=== PATIENT | male | born 1970 | race African-American/Black ===

== ENCOUNTER 2022-06-24 14:40 | Emergency (ER) | payer OTHER ==
[~2022-06-24] VITALS: Ht 180.3 cm; Wt 80.9 kg
[2022-06-24] MEDS ORDERED: ASPIRIN 325MG EC TABLET PO ONE (15:00)
[2022-06-24 15:51] LABS: BASOPHILS % 0.5 % (0.0-2.0); HEMATOCRIT. 42.3 % (42.0-52.0); HEMOGLOBIN. 13.4 g/dL (14.0-18.0); LYMPHOCYTES % 20.2 % (20.0-50.0); MEAN CORPUSCULAR HEMOGLOBIN 21.7 pg (28.0-32.0); MEAN CORPUSCULAR VOLUME 68.4 fL (80.0-94.0); MONOCYTES % 9.8 % (2.0-8.0); NEUTROPHILS % 67.5 % (40.0-76.0); PLATELET 234 x1000/uL (130-400); RED BLOOD CELL COUNT 6.19 mill/uL (4.7-6.1); RED CELL DISTRIBUTION WIDTH 15.6 % (11.6-14.6)
[2022-06-24 16:12] LABS: CHLORIDE 106 mEq/L (98-107)
[2022-06-24 17:59] LABS: CLARITY URINE CLOUDY (CLEAR); COLOR URINE YELLOW (YELLOW); KETONES URINE NEGATIVE (NEGATIVE); LEUKOCYTE ESTERASE URINE NEGATIVE (NEGATIVE); NITRITE URINE NEGATIVE (NEGATIVE); OCCULT BLOOD URINE NEGATIVE (NEGATIVE); PH URINE 7.5 (4.5-8.0); PROTEIN URINE NEGATIVE (NEGATIVE); SPECIFIC GRAVITY URINE 1.009 (1.005-1.030); UROBILINOGEN URINE 0.2 E.U./dL (0.2-1.0)
[2022-06-24 20:12] LABS: PLATELET ESTIMATE NORMAL
[2022-06-24 21:00] VITALS: BP 136/82
== END 2022-06-24 21:15 | disposition home or self-care (01) ==
LOC: ER 14:40
DX: R07.89 Other chest pain (principal); M54.2 Cervicalgia; M25.512 Pain in left shoulder; J45.909 Unspecified asthma, uncomplicated
CPT/HCPCS: 36415; 71045; 80053; 81003; 83690; 83880; 84484; 85025; 93005; 99285; Z7610

== ENCOUNTER 2023-05-03 02:12 | Emergency (ER) | payer MEDICAID, OTHER ==
[~2023-05-03] VITALS: Ht 175.3 cm; Wt 77.0 kg
[2023-05-03 02:21] VITALS: O2SAT 98
[2023-05-03] MEDS: ONDANSETRON HCL 4MG/2ML INJ IV STA (02:56)
[2023-05-03] MEDS: MORPHINE SULFATE 4 MG/ML CPJ (NOT FOR IM USE) IV STA (02:56)
[2023-05-03] MEDS: SODIUM CHLORIDE 0.9% 1,000 ML IV ONE (03:00)
[2023-05-03 03:32] LABS: HEMATOCRIT. 31.1 % (42.0-52.0); HEMOGLOBIN. 9.9 g/dL (14.0-18.0); MEAN CORPUSCULAR HEMOGLOBIN 21.5 pg (28.0-32.0); MEAN CORPUSCULAR VOLUME 67.4 fL (80.0-94.0); MEAN PLATELET VOLUME 8.6 fl (7.4-10.4); PLATELET 137 x1000/uL (130-400); RED BLOOD CELL COUNT 4.62 mill/uL (4.7-6.1); RED CELL DISTRIBUTION WIDTH 19.3 % (11.6-14.6); WHITE BLOOD COUNT 10.2 x1000/uL (4.5-11.0)
[2023-05-03 03:43] LABS: DIFFERENTIAL COMMENT 1; INR 1.2; PROTHROMBIN TIME 13.6 sec (9.6-11.0)
[2023-05-03 03:57] LABS: LACTIC ACID 2.3 mmol/L (0.4-2.0)
[2023-05-03 04:07] VITALS: BP 104/70; PULSE 74; RESP 13; TEMP 98.3
[2023-05-03 04:34] LABS: ALANINE AMINOTRANSFERASE 110 IU/L (10-49); ALBUMIN 4.3 g/dL (3.2-4.8); ASPARTATE AMINOTRANSFERASE 96 IU/L (<34); BILIRUBIN TOTAL 0.8 mg/dL (0.1-1.0); CARBON DIOXIDE 27 mEq/L (21-32); CHLORIDE 100 mEq/L (98-107); CREATININE 0.8 mg/dL (0.6-1.3); GLUCOSE 135 mg/dL (70-105); POTASSIUM 4.3 mEq/L (3.5-5.1); PROTEIN TOTAL 7.1 g/dL (6.0-8.3); SODIUM 135 mEq/L (136-145); UREA NITROGEN BLOOD 13 mg/dL (9-23)
[2023-05-03 04:51] LABS: TROPONIN I HIGH SENSITIVITY 429 ng/L (3.0-53)
[2023-05-03] MEDS ORDERED: ASPIRIN 325MG EC TABLET PO NR (05:15)
[2023-05-03] MEDS ORDERED: MORPHINE SULFATE 4 MG/ML CPJ (NOT FOR IM USE) IV NR (05:15)
[2023-05-03] MEDS ORDERED: ENOXAPARIN 80MG/0.8ML SYR SUBCUT NR (05:15)
[2023-05-03 05:23] LABS: ANISOCYTOSIS 2+; HYPOCHROMASIA 2+; MICROCYTOSIS 3+; PLATELET ESTIMATE SLIGHTLY DECREASED
[2023-05-03 07:26] LABS: CALCIUM 9.8 mg/dL (8.7-10.4)
== END 2023-05-03 05:00 | disposition left against medical advice (07) ==
LOC: ER 02:12 → EDBEDREQ 05:26 → EDBEDREQSVC 05:26 → EDBEDREQTM 05:26
DX: I21.3 ST elevation (STEMI) myocardial infarction of unspecified site (principal); R10.9 Unspecified abdominal pain; J45.909 Unspecified asthma, uncomplicated
CPT/HCPCS: 80053; 83605; 83690; 85025; 85610; 84484; 36415; 71045; 93005; 96361; 96374; 96375; 99285; J2405; J2270; Z7610 ×3